=== PATIENT | female | born 1955 | race Caucasian/White ===

== ENCOUNTER 2024-04-25 08:44 | Day surgery (SDC) | payer BC ==
[2024-04-20 09:59] VITALS: BMI 25.7
[2024-04-25] MEDS ORDERED: MIDAZOLAM HCL 2 MG/2 ML SINGLE DOSE VIAL ONE (09:43)
[2024-04-25] MEDS ORDERED: LIDOCAINE HCL/PF 2% SDV 5ML VIAL ONE (09:44)
[2024-04-25 10:46] VITALS: TEMP 98
[2024-04-25 10:48] VITALS: BP 117/60; PULSE 85; RESP 19
== END 2024-04-25 10:40 | disposition home or self-care (01) ==
LOC: FASU-ENDO 08:44
PROVIDERS: ATTEND Internal Medicine Gastroenterology
PROC: 0DB78ZX Excision of Stomach, Pylorus, Via Natural or Artificial Opening Endoscopic, Diagnostic (ICD-10-PCS; 2024-04-25)
PROC: 0DB68ZX Excision of Stomach, Via Natural or Artificial Opening Endoscopic, Diagnostic (ICD-10-PCS; 2024-04-25)
PROC: 0DB98ZX Excision of Duodenum, Via Natural or Artificial Opening Endoscopic, Diagnostic (ICD-10-PCS; principal; 2024-04-25 09:49)
DX: K29.50 Unspecified chronic gastritis without bleeding (principal); K31.A11 Gastric intestinal metaplasia without dysplasia, involving the antrum
CPT/HCPCS: 82962; 88305-TC; 88342-TC